=== PATIENT | male | born 2005 | race Caucasian/White ===

== ENCOUNTER 2024-03-08 22:36 | Emergency (ER) | payer SELFPAY ==
[~2024-03-08] VITALS: Ht 175.3 cm; Wt 61.0 kg
[2024-03-08 22:42] VITALS: O2SAT 98
[2024-03-08 23:05] LABS: BASOPHILS % 0.6 % (0.0-2.0); EOSINOPHILS % 0.7 % (0.0-5.0); HEMATOCRIT. 40.3 % (42.0-52.0); HEMOGLOBIN. 13.5 g/dL (14.0-18.0); LYMPHOCYTES % 23.5 % (20.0-50.0); MEAN CORPUSCULAR HEMOGLOBIN 31.5 pg (28.0-32.0); MEAN CORPUSCULAR HGB CONC 33.5 g/dL (31.0-37.0); MEAN CORPUSCULAR VOLUME 94.1 fL (80.0-94.0); NEUTROPHILS % 70.2 % (40.0-76.0); PLATELET 286 x1000/uL (130-400); RED BLOOD CELL COUNT 4.29 mill/uL (4.7-6.1); RED CELL DISTRIBUTION WIDTH 13.4 % (11.6-14.6); WHITE BLOOD COUNT 13.5 x1000/uL (4.5-11.0)
[2024-03-08 23:10] LABS: CHLORIDE 108 mEq/L (98-107); POTASSIUM 3.1 mEq/L (3.5-5.1); SODIUM 141 mEq/L (136-145)
[2024-03-08 23:11] LABS: CALCIUM 8.5 mg/dL (8.7-10.4); CARBON DIOXIDE 23 mEq/L (21-32)
[2024-03-08 23:16] LABS: CREATININE 0.8 mg/dL (0.6-1.3); GLUCOSE 174 mg/dL (70-105); UREA NITROGEN BLOOD 7 mg/dL (9-23)
[2024-03-08 23:17] LABS: ETHANOL BLOOD 279 mg/dL (<10)
[2024-03-08 23:18] LABS: ALANINE AMINOTRANSFERASE 29 IU/L (10-49); ALBUMIN 4.6 g/dL (3.2-4.8); ASPARTATE AMINOTRANSFERASE 35 IU/L (<34); BILIRUBIN DIRECT 0.2 mg/dL (<=3.0)
[2024-03-08 23:19] LABS: BILIRUBIN TOTAL 0.5 mg/dL (0.1-1.0); PROTEIN TOTAL 6.7 g/dL (6.0-8.3)
[2024-03-08] MEDS: ONDANSETRON HCL 4MG/2ML INJ IV STA (23:21)
[2024-03-08] MEDS: SODIUM CHLORIDE 0.9% 1,000 ML IV ONE (23:21)
[2024-03-09] MEDS ORDERED: ONDA4TAB50 MT (02:17)
[2024-03-09 02:22] VITALS: BP 116/79; PULSE 86; RESP 16; TEMP 35.66952; O2SAT 100
== END 2024-03-09 02:22 | disposition home or self-care (01) ==
LOC: ER 22:36
DX: F10.129 Alcohol abuse with intoxication, unspecified (principal); R11.2 Nausea with vomiting, unspecified; E87.6 Hypokalemia; F19.90 Other psychoactive substance use, unspecified, uncomplicated
CPT/HCPCS: 80076; 80048; 80320; 83690; 85025; 36415; 96361; 96374; 99283; J2405; J7030; G0480